=== PATIENT | female | born 1965 | race American Indian/Alaskan Native ===

== ENCOUNTER 2018-04-02 07:15 | Emergency (ER) | payer OTHER ==
[2018-04-02 07:26] VITALS: BP 135/73
[2018-04-02] MEDS ORDERED: MOTRIN PO ONE ×2 (09:13→09:14)
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
== END 2018-04-02 09:56 | disposition home or self-care (01) ==
LOC: ED 07:15
DX: S76.311A Strain of muscle, fascia and tendon of the posterior muscle group at thigh level, right thigh, initial encounter (principal); I10 Essential (primary) hypertension; E11.9 Type 2 diabetes mellitus without complications; J45.909 Unspecified asthma, uncomplicated; Z88.0 Allergy status to penicillin; W17.89XA Other fall from one level to another, initial encounter; Y93.02 Activity, running; Y92.89 Other specified places as the place of occurrence of the external cause; Y99.8 Other external cause status
CPT/HCPCS: 99282